=== PATIENT | female | born 1950 | race Two or more races ===

== ENCOUNTER → 2022-04-05 08:25 | Outpatient (BNVA) | payer MEDICARE, SELFPAY | PROVIDERS: PCP Internal Medicine; Visit Provider Student in an Organized Health Care Education/Training Program | DX: L40.50 Arthropathic psoriasis, unspecified (principal); M54.12 Radiculopathy, cervical region; M17.0 Bilateral primary osteoarthritis of knee | CPT/HCPCS: 99202 ==

== ENCOUNTER 2022-04-12 09:27 | Outpatient (REF) | payer OTHER, SELFPAY ==
--- NOTE | ~2022-04-12 | XR_ITS ---
EXAMINATION: XR FOOT, RIGHT XR FOOT, LEFT XR HAND/WRIST, RIGHT XR HAND/WRIST, LEFT XR SACROILIAC JOINTS CLINICAL INFORMATION: Screening for viral disease. Pain. COMPARISON: None TECHNIQUE: 4 views each hand. 3 views each foot. SI joints 3 views. FINDINGS: LEFT FOOT: There is no visible acute fracture, dislocation or subluxation. Visualized bones and joints are unremarkable.. There are small calcaneal heel and retrocalcaneal enthesophytes. The ankle mortise and subtalar joints are normal. The soft tissues are unremarkable. RIGHT FOOT: There is no visible acute fracture, dislocation or subluxation. Visualized bones and joints are unremarkable. There are small calcaneal heel and retrocalcaneal enthesophytes. The ankle mortise and subtalar joints are normal. SI JOINTS: The SI joints are symmetrical and normal. No visible fracture or dislocation. The soft tissues are normal. RIGHT HAND: There is no visible acute fracture, dislocation or subluxation. There is loss of 1st carpometacarpal joint space with periarticular spurring. Mild loss of PIP and DIP joint space is seen as well. No visible acute fracture, dislocation or subluxation seen. The soft tissues are normal. LEFT HAND: There is bilateral loss of PIP and DIP joint space all digits. No visible acute fracture, dislocation or lytic process seen. The soft tissues are normal. XR/XR foot LT 2V IMPRESSION: Mild degenerative changes PIP and DIP joints both digits and 1st carpometacarpal joint. Moderate periarticular spurring right hand. No visible acute fracture or dislocation seen. Unremarkable SI joints. Bilateral small calcaneal heel and retrocalcaneal enthesophytes. No visible acute fracture, dislocation or subluxation seen. No soft tissue swelling.
--- NOTE | ~2022-04-12 | XR_ITS ---
EXAMINATION: XR FOOT, RIGHT XR FOOT, LEFT XR HAND/WRIST, RIGHT XR HAND/WRIST, LEFT XR SACROILIAC JOINTS CLINICAL INFORMATION: Screening for viral disease. Pain. COMPARISON: None TECHNIQUE: 4 views each hand. 3 views each foot. SI joints 3 views. FINDINGS: LEFT FOOT: There is no visible acute fracture, dislocation or subluxation. Visualized bones and joints are unremarkable.. There are small calcaneal heel and retrocalcaneal enthesophytes. The ankle mortise and subtalar joints are normal. The soft tissues are unremarkable. RIGHT FOOT: There is no visible acute fracture, dislocation or subluxation. Visualized bones and joints are unremarkable. There are small calcaneal heel and retrocalcaneal enthesophytes. The ankle mortise and subtalar joints are normal. SI JOINTS: The SI joints are symmetrical and normal. No visible fracture or dislocation. The soft tissues are normal. RIGHT HAND: There is no visible acute fracture, dislocation or subluxation. There is loss of 1st carpometacarpal joint space with periarticular spurring. Mild loss of PIP and DIP joint space is seen as well. No visible acute fracture, dislocation or subluxation seen. The soft tissues are normal. LEFT HAND: There is bilateral loss of PIP and DIP joint space all digits. No visible acute fracture, dislocation or lytic process seen. The soft tissues are normal. XR/XR foot RT 2V IMPRESSION: Mild degenerative changes PIP and DIP joints both digits and 1st carpometacarpal joint. Moderate periarticular spurring right hand. No visible acute fracture or dislocation seen. Unremarkable SI joints. Bilateral small calcaneal heel and retrocalcaneal enthesophytes. No visible acute fracture, dislocation or subluxation seen. No soft tissue swelling.
--- NOTE | ~2022-04-12 | XR_ITS ---
EXAMINATION: XR FOOT, RIGHT XR FOOT, LEFT XR HAND/WRIST, RIGHT XR HAND/WRIST, LEFT XR SACROILIAC JOINTS CLINICAL INFORMATION: Screening for viral disease. Pain. COMPARISON: None TECHNIQUE: 4 views each hand. 3 views each foot. SI joints 3 views. FINDINGS: LEFT FOOT: There is no visible acute fracture, dislocation or subluxation. Visualized bones and joints are unremarkable.. There are small calcaneal heel and retrocalcaneal enthesophytes. The ankle mortise and subtalar joints are normal. The soft tissues are unremarkable. RIGHT FOOT: There is no visible acute fracture, dislocation or subluxation. Visualized bones and joints are unremarkable. There are small calcaneal heel and retrocalcaneal enthesophytes. The ankle mortise and subtalar joints are normal. SI JOINTS: The SI joints are symmetrical and normal. No visible fracture or dislocation. The soft tissues are normal. RIGHT HAND: There is no visible acute fracture, dislocation or subluxation. There is loss of 1st carpometacarpal joint space with periarticular spurring. Mild loss of PIP and DIP joint space is seen as well. No visible acute fracture, dislocation or subluxation seen. The soft tissues are normal. LEFT HAND: There is bilateral loss of PIP and DIP joint space all digits. No visible acute fracture, dislocation or lytic process seen. The soft tissues are normal. XR/XR hand wrist RT IMPRESSION: Mild degenerative changes PIP and DIP joints both digits and 1st carpometacarpal joint. Moderate periarticular spurring right hand. No visible acute fracture or dislocation seen. Unremarkable SI joints. Bilateral small calcaneal heel and retrocalcaneal enthesophytes. No visible acute fracture, dislocation or subluxation seen. No soft tissue swelling.
--- NOTE | ~2022-04-12 | XR_ITS ---
EXAMINATION: XR FOOT, RIGHT XR FOOT, LEFT XR HAND/WRIST, RIGHT XR HAND/WRIST, LEFT XR SACROILIAC JOINTS CLINICAL INFORMATION: Screening for viral disease. Pain. COMPARISON: None TECHNIQUE: 4 views each hand. 3 views each foot. SI joints 3 views. FINDINGS: LEFT FOOT: There is no visible acute fracture, dislocation or subluxation. Visualized bones and joints are unremarkable.. There are small calcaneal heel and retrocalcaneal enthesophytes. The ankle mortise and subtalar joints are normal. The soft tissues are unremarkable. RIGHT FOOT: There is no visible acute fracture, dislocation or subluxation. Visualized bones and joints are unremarkable. There are small calcaneal heel and retrocalcaneal enthesophytes. The ankle mortise and subtalar joints are normal. SI JOINTS: The SI joints are symmetrical and normal. No visible fracture or dislocation. The soft tissues are normal. RIGHT HAND: There is no visible acute fracture, dislocation or subluxation. There is loss of 1st carpometacarpal joint space with periarticular spurring. Mild loss of PIP and DIP joint space is seen as well. No visible acute fracture, dislocation or subluxation seen. The soft tissues are normal. LEFT HAND: There is bilateral loss of PIP and DIP joint space all digits. No visible acute fracture, dislocation or lytic process seen. The soft tissues are normal. XR/XR hand wrist LT IMPRESSION: Mild degenerative changes PIP and DIP joints both digits and 1st carpometacarpal joint. Moderate periarticular spurring right hand. No visible acute fracture or dislocation seen. Unremarkable SI joints. Bilateral small calcaneal heel and retrocalcaneal enthesophytes. No visible acute fracture, dislocation or subluxation seen. No soft tissue swelling.
--- NOTE | ~2022-04-12 | XR_ITS ---
EXAMINATION: XR FOOT, RIGHT XR FOOT, LEFT XR HAND/WRIST, RIGHT XR HAND/WRIST, LEFT XR SACROILIAC JOINTS CLINICAL INFORMATION: Screening for viral disease. Pain. COMPARISON: None TECHNIQUE: 4 views each hand. 3 views each foot. SI joints 3 views. FINDINGS: LEFT FOOT: There is no visible acute fracture, dislocation or subluxation. Visualized bones and joints are unremarkable.. There are small calcaneal heel and retrocalcaneal enthesophytes. The ankle mortise and subtalar joints are normal. The soft tissues are unremarkable. RIGHT FOOT: There is no visible acute fracture, dislocation or subluxation. Visualized bones and joints are unremarkable. There are small calcaneal heel and retrocalcaneal enthesophytes. The ankle mortise and subtalar joints are normal. SI JOINTS: The SI joints are symmetrical and normal. No visible fracture or dislocation. The soft tissues are normal. RIGHT HAND: There is no visible acute fracture, dislocation or subluxation. There is loss of 1st carpometacarpal joint space with periarticular spurring. Mild loss of PIP and DIP joint space is seen as well. No visible acute fracture, dislocation or subluxation seen. The soft tissues are normal. LEFT HAND: There is bilateral loss of PIP and DIP joint space all digits. No visible acute fracture, dislocation or lytic process seen. The soft tissues are normal. XR/XR sacroiliac joint 1-2V IMPRESSION: Mild degenerative changes PIP and DIP joints both digits and 1st carpometacarpal joint. Moderate periarticular spurring right hand. No visible acute fracture or dislocation seen. Unremarkable SI joints. Bilateral small calcaneal heel and retrocalcaneal enthesophytes. No visible acute fracture, dislocation or subluxation seen. No soft tissue swelling.
[2022-04-12 09:57] LABS: MANUAL DIFF FLAG NO
[2022-04-12 11:03] LABS: Basophils Percent Auto 0.1 % (0-2); Hematocrit 41.1 % (37.0-47.0); Hemoglobin 13.5 g/dl (12.0-16.0); Imm Gran Abs Auto 0.13 X10*3/uL (0.00-0.03); Imm Gran Pct Auto 0.9 % (0.0-0.4); Lymphocytes Absolute Auto 1.2 X10*3/uL (1.2-4.9); Lymphocytes Percent Auto 8.1 % (20-40); Mean Corpuscular HGB Conc 32.8 g/dl (31.0-35.0); Mean Corpuscular Hemoglobin 27.6 pg (27.0-33.0); Mean Platelet Volume 10.3 fL (9.4-12.3); Monocytes Absolute Auto 0.7 X10*3/uL (0.1-1.2); Monocytes Percent Auto 4.3 % (2-11); Neutrophils Absolute Auto 13.1 x10*3/uL (2.0-8.3); Neutrophils Percent Auto 86.6 % (45-73); Platelet Count 262 X10*3/uL (160-400); Red Blood Count 4.89 X10*6/uL (4.20-5.50); Red Cell Distribution Width 14.2 % (11.0-16.0); White Blood Count 15.1 X10*3/uL (4.8-10.8)
[2022-04-12 11:37] LABS: Alanine Aminotransferase 13 U/L (0-31); Albumin Level 4.4 g/dL (3.5-5.0); Alkaline Phosphatase 57 U/L (39-117); Anion Gap 16 (12-20); Aspartate Amino Transferase 15 U/L (5-31); Bilirubin Total 0.6 mg/dL (0.0-1.0); Blood Urea Nitrogen 18 mg/dL (9-16); C Reactive Protein 0.52 mg/dL (< or = 0.50); Calcium 9.7 mg/dL (8.4-10.2); Carbon Dioxide 22 mmol/L (22-29); Chloride 107 mmol/L (96-108); Estimated Glomerular Filt Rate > 60; Glucose Random 127 mg/dL (60-115); Potassium 4.2 mmol/L (3.3-5.1); Sodium 141 mmol/L (135-145); Total Protein 8.2 g/dL (6.5-8.0)
[2022-04-12 11:55] LABS: Rheumatoid Factor < 15.0 IU/mL (<15.0)
[2022-04-12 12:29] LABS: HBS Num1 0.54 mIU/mL (0-7.99); HBc Num1 0.07 S/CO (0.00-0.79); HBsAGNum1 0.19 S/CO (0.00-0.99); Hepatitis A Antibody IgM 0.34 Index (0-0.79); Hepatitis B Core Antibody Nonreactive (Nonreactive); Hepatitis B Surface Antigen Negative (Negative); ~HepC Num1 15.22 S/CO (0.00-0.79); ~Hepatitis A Antibody IgM Nonreactive (Nonreactive); ~Hepatitis B Surface Antibody NONREACTIVE (Nonreactive); ~Hepatitis C Antibody Reactive (Nonreactive)
[2022-04-12 12:33] LABS: Erythrocyte Sedimentation Rate 21 MM/HR (0-20)
[2022-04-15 00:36] LABS: TS Negative Control Passed; TS Panel A 0; TS Panel B 0; TS Positive Control Passed; TSpotTB Negative (Negative)
[2022-04-17 16:12] LABS: Cyclic Citrullinated Peptide <16 UNITS
[2022-04-18 10:16] LABS: HLA B27 Negative (Negative)
== END 2022-04-12 09:28 | disposition home or self-care (01) ==
LOC: HO.XRAY 09:27
PROVIDERS: Visit Provider Student in an Organized Health Care Education/Training Program
DX: Z11.59 Encounter for screening for other viral diseases (principal); L40.50 Arthropathic psoriasis, unspecified; M54.12 Radiculopathy, cervical region; Z22.7 Latent tuberculosis; M79.641 Pain in right hand; M79.642 Pain in left hand; M79.671 Pain in right foot; M79.672 Pain in left foot; M25.531 Pain in right wrist; M25.532 Pain in left wrist
CPT/HCPCS: 36415; 72200; 73110; 73130; 73620; 80053; 85025; 85652; 86140; 86200; 86431; 86481; 86704; 86706; 86709; 86803; 86812; 87340

== ENCOUNTER → 2022-05-10 10:22 | Outpatient (BNVA) | payer OTHER, SELFPAY | PROVIDERS: PCP Internal Medicine; Visit Provider Student in an Organized Health Care Education/Training Program | DX: L40.9 Psoriasis, unspecified (principal); M17.0 Bilateral primary osteoarthritis of knee; M12.811 Other specific arthropathies, not elsewhere classified, right shoulder; M12.812 Other specific arthropathies, not elsewhere classified, left shoulder; E66.01 Morbid (severe) obesity due to excess calories; Z68.42 Body mass index [BMI] 45.0-49.9, adult | CPT/HCPCS: 99212 ==

== ENCOUNTER 2022-05-23 11:30 | Outpatient (REF) | payer OTHER, SELFPAY ==
--- NOTE | ~2022-05-23 | XR_ITS ---
EXAMINATION: XR SHOULDER, RIGHT CLINICAL INFORMATION: Pain. COMPARISON: None TECHNIQUE: AP external rotation, Grashey, scapular Y, and axillary views of the right shoulder. FINDINGS: Bony alignment and mineralization are normal. There is marked subluxation of the right glenohumeral joint, without francisco dislocation. The acromioclavicular and coracoclavicular intervals are normal. 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 No fracture or dislocation is seen. There is a small distal acromial undersurface osteophyte. No soft tissue calcifications or foreign body is seen. There is no right pneumothorax. XR/XR shoulder LT min 2V IMPRESSION: 1. No fracture or francisco dislocation is seen. 2. There is marked subluxation of the right glenohumeral joint.
[2022-05-24 20:51] LABS: HCV Log PCR <1.18 NOT DETECTED Log IU/mL (NOT DETECTED); HepC Viral Load <15 NOT DETECTED IU/mL (NOT DETECTED)
== END 2022-05-23 11:31 | disposition home or self-care (01) ==
LOC: HO.LAB 11:30
PROVIDERS: PCP Internal Medicine Gastroenterology; Visit Provider Student in an Organized Health Care Education/Training Program
DX: M25.512 Pain in left shoulder (principal); M25.511 Pain in right shoulder; B19.20 Unspecified viral hepatitis C without hepatic coma
CPT/HCPCS: 36415; 73030; 87522

== ENCOUNTER → 2022-06-20 10:27 | Outpatient (BNVA) | payer OTHER, SELFPAY | PROVIDERS: Visit Provider Student in an Organized Health Care Education/Training Program | DX: L40.9 Psoriasis, unspecified (principal); M17.0 Bilateral primary osteoarthritis of knee | CPT/HCPCS: Q3014 ==